=== PATIENT | female | born 1985 | race American Indian/Alaskan Native ===

== ENCOUNTER 2017-12-30 23:31 | Emergency (ER) | payer SELFPAY ==
[2017-12-31 01:18] VITALS: BP 117/78
[2017-12-31] MEDS ORDERED: MOTRIN PO ONE (01:52)
== END 2017-12-31 03:00 | disposition left against medical advice (07) ==
LOC: ED 23:31
DX: M79.1 Myalgia (principal); Z53.21 Procedure and treatment not carried out due to patient leaving prior to being seen by health care provider

== ENCOUNTER 2022-06-04 13:33 | Emergency (ER) | payer MEDICAID ==
[2022-06-04 14:32] VITALS: BP 105/64
== END 2022-06-05 02:07 | disposition left against medical advice (07) ==
LOC: ED 13:33
DX: R52 Pain, unspecified (principal); Z53.21 Procedure and treatment not carried out due to patient leaving prior to being seen by health care provider